=== PATIENT | male | born 1955 | race African-American/Black ===

== ENCOUNTER 2025-01-13 16:13 | Emergency (ER) | payer MEDICARE ==
[~2025-01-13] VITALS: Ht 167.6 cm; Wt 82.0 kg
[2025-01-13 16:18] VITALS: BP 139/80; PULSE 118; RESP 18; TEMP 37; O2SAT 99
[2025-01-13] MEDS: ACETAMINOPHEN 325MG TABLET PO ONE (18:23)
== END 2025-01-13 18:38 | disposition left against medical advice (07) ==
LOC: ER 16:13
DX: S50.311A Abrasion of right elbow, initial encounter (principal); I10 Essential (primary) hypertension; W01.0XXA Fall on same level from slipping, tripping and stumbling without subsequent striking against object, initial encounter; Y93.89 Activity, other specified; Y92.89 Other specified places as the place of occurrence of the external cause; Y99.8 Other external cause status
CPT/HCPCS: 99283